=== PATIENT | male | born 1965 | race Two or more races ===

== ENCOUNTER 2023-01-24 13:39 | Outpatient (CLI) | payer OTHER | END 2023-01-24 23:59 | disposition home or self-care (01) | LOC: LAB 13:39 | PROVIDERS: ATTEND Specialist | DX: Z01.812 Encounter for preprocedural laboratory examination (principal); Z20.822 Contact with and (suspected) exposure to COVID-19 | CPT/HCPCS: U0003; C9803 ==

== ENCOUNTER 2023-02-21 14:02 | Outpatient (CLI) | payer OTHER | END 2023-02-21 23:59 | disposition home or self-care (01) | LOC: LAB 14:02 | PROVIDERS: ATTEND Specialist | DX: Z01.812 Encounter for preprocedural laboratory examination (principal); Z20.822 Contact with and (suspected) exposure to COVID-19 | CPT/HCPCS: U0003; C9803 ==

== ENCOUNTER 2023-03-14 07:25 | Inpatient (IN) | payer OTHER ==
[~2023-03-14] VITALS: Ht 182.9 cm; Wt 113.4 kg
[2023-03-14] MEDS ORDERED: FENTANYL PF 100MCG/2ML AMPUL ONE ×2 (07:38→07:39)
[2023-03-14] MEDS ORDERED: MIDAZOLAM HCL 2 MG/2ML VIAL ONE (07:38)
[2023-03-14] MEDS ORDERED: BUPIVACAINE 0.5 % PF 150 MG/30 ML VIAL ONE ×2 (07:38→07:48)
[2023-03-14] MEDS ORDERED: POLYMYXIN B SULFATE 500,000 UNITS ONE (07:47)
[2023-03-14] MEDS ORDERED: methylPREDNISolone ACETATE 80 MG/ML VIAL ONE (07:48)
[2023-03-14] MEDS ORDERED: TRANEXAMIC ACID 3,000 MG in SODIUM CHLORIDE IRRIG SOLUTION 70 ML IR ONE (08:00)
--- NOTE | 2023-03-14 08:45 | NUR ---
RN ADMITTING NOTES PATIENT ARRIVED TO UNIT @0745, AMBULATORY, A/Ox4, ON ROOM AIR. SHOWED TO ROOM AND ASKED TO CHANGE INTO [facility]OSPITAL [facility]. ORIENTED TO STAFF AND UNIT. CHART REVIEWED, CONSENTS AND CHECKLIST TAKEN. V/S TAKEN AND STABLE. CONSENTS SIGNED BY PATIENT. CHECKLIST COMPLETED. SURGERY TOOK PATIENT @0800 VIA BED. ALL BELONGINGS PUT INTO DRESSER ON UNIT.
[2023-03-14] MEDS ORDERED: HYDROMORPHONE 1 MG/1 ML DISP.SYRIN ONE (10:29)
[2023-03-14] MEDS ORDERED: ACETAMINOPHEN 325 MG TABLET PO PRN ×3 (10:30→13:00)
[2023-03-14] MEDS ORDERED: ONDANSETRON HCL/PF 4 MG/2 ML VIAL IV PRN (10:30)
[2023-03-14] MEDS ORDERED: SENNOSIDES 8.6 MG TABLET PO PRN (10:30)
[2023-03-14] MEDS ORDERED: HYDROCODONE/APAP 5/325MG TABLET PO PRN (10:30)
[2023-03-14] MEDS ORDERED: BISACODYL SUPP (10 MG) 10 MG/SUPP.RECT SUPP.RECT RC PRN (10:30)
[2023-03-14] MEDS ORDERED: DOCUSATE SODIUM 250 MG CAPSULE PO PRN (10:30)
[2023-03-14] MEDS ORDERED: ZOLPIDEM TARTRATE 5 MG TABLET PO PRN (10:30)
[2023-03-14] MEDS ORDERED: HYDROMORPHONE 1 MG/1 ML DISP.SYRIN IV PRN (10:30)
[2023-03-14 11:15] VITALS: BP 146/94
--- NOTE | 2023-03-14 11:20 | NUR ---
RN NOTES PATIENT RETURNED TO UNIT ACCOMPANIED BY TWO OR STAFF. PATIENT RESTING IN BED ON ROOM AIR, NO S/S OF RESPIRATORY DISTRESS. IV ACCESS R HAND #18G RUNNING NS. V/S TAKEN AND STABLE.
[2023-03-14 11:30] VITALS: BP 144/92
[2023-03-14] MEDS: IV LR 1000 ML 1,000 ML IV PRN ×2 (11:44→23:56)
[2023-03-14 12:00] VITALS: BP 141/84
[2023-03-14] MEDS ORDERED: hydrALAZINE HCL IV 20 MG VIAL IV PRN (13:00)
--- NOTE | 2023-03-14 14:35 | NUR ---
RN NOTES PATIENT WOKE AND COMPLAINED OF PAIN 10/10 OF RN KNEE. PRN DILAUDID ADMINISTERED.
[2023-03-14 16:00] VITALS: BP 137/86
[2023-03-14] MEDS: ASPIRIN EC 81 MG TABLET.DR PO SCH (16:14)
[2023-03-14] MEDS: ANCEF 1 GM/50 ML D5W IV SCH ×2 (16:14)
--- NOTE | 2023-03-14 17:50 | NUR ---
RN NOTES PATIENT COMPLAINED OF PAIN 7/10, PRN NARCO ADMINISTERED.
--- NOTE | 2023-03-14 18:41 | NUR ---
MS RN CLOSING NOTES PATIENT SLEEPING IN BED, A/Ox4, ABLE TO VERBALIZE NEEDS. STABLE ON ROOM AIR. NO S/S OF RESPIRATORY DISTRESS. IV ACCESS R HAND #18G RUNNING LR @100 ML/HR, INTACT AND PATENT. SKIN ISSUES: R KNEE SX SITE. SAFETY MEASURES MAINTAINED: BED LOCKED AND IN LOWEST POSITION, HOB ELEVATED, CALL LIGHT WITHIN REACH, SIDE RAILS UPx2. ENDORSE TO NEXT SHIFT ANY DARIN.
--- NOTE | 2023-03-14 19:15 | NUR ---
MS RN OPENING NOTES - RECEIVED PATIENT SLEEPING, EASY TO AROUSE. A/O X4. BREATHING EVEN AND NON-LABORED ON ROOM AIR. NOT IN APPARENT DISTRESS. C/O THROBBING RIGHT KNEE PAIN 05/28. HAS RIGHT HAND IV ACCESS #18G WITH LR RUNNING AT 100 ML/HR. NO S/S OF INFILTRATION NOTED. RIGHT LOWER EXTREMITY MOOKIE BANDAGE DRY AND INTACT. SAFETY PRECAUTIONS IN PLACE: BED LOCKED AND IN LOW POSITION, SIDE RAILS UP X2, CALL LIGHT WITHIN REACH. WILL CONTINUE TO PLAN OF CARE.
[2023-03-14] MEDS ORDERED: diphenhydrAMINE HCL 25 MG CAPSULE PO PRN (19:30)
[2023-03-14] MEDS ORDERED: MAG HYDROX/AL HYDROX/SIMETH 30 ML UDC PO PRN (19:30)
[2023-03-14] MEDS ORDERED: MAGNESIUM HYDROXIDE 30 ML UDC PO PRN (19:30)
[2023-03-14] MEDS ORDERED: CLONIDINE HCL 0.1 MG TABLET PO PRN (19:30)
[2023-03-14] MEDS ORDERED: HYDROCODONE/APAP 10/325MG TABLET PO PRN (19:30)
[2023-03-14 20:00] VITALS: BP 142/88
[2023-03-14] MEDS: DOCUSATE SODIUM 100 MG CAPSULE PO SCH (20:21)
[2023-03-14] MEDS: FAMOTIDINE (20 MG) 20 MG TABLET PO SCH (20:21)
[2023-03-14] MEDS: HYDROMORPHONE 1 MG/1 ML DISP.SYRIN IV PRN (20:21)
--- NOTE | 2023-03-14 20:30 | NUR ---
C/O THROBBING RIGHT KNEE PAIN 07/29. ADMINISTERED PRN DILAUDID 0.5MG, WILL CONTINUE TO MONITOR.
[2023-03-15] MEDS: ANCEF 1 GM/50 ML D5W IV SCH ×2 (00:04)
[2023-03-15] MEDS: HYDROMORPHONE 1 MG/1 ML DISP.SYRIN IV PRN ×3 (06:02→13:29)
--- NOTE | 2023-03-15 06:02 | NUR ---
C/O BREAKTHROUGH RIGHT KNEE PAIN 08/28. ADMINISTERED PRN DILAUDID 0.5MG PER MD ORDER.
[2023-03-15 06:10] LABS: BASOPHILS % (AUTO) 0.3 % (0.0-2.0); EOSINOPHILS % (AUTO) 0.3 % (0.0-6.0); HEMATOCRIT 40 % (39-51); HEMOGLOBIN 13.6 g/dL (13.5-17.5); LYMPHOCYTES # (AUTO) 1.8 K/uL (0.8-4.8); LYMPHOCYTES % (AUTO) 13.7 % (20.0-44.0); MEAN CORPUSCULAR HGB CONC 34 g/dl (31.0-36.0); MEAN CORPUSCULAR VOLUME 86 fL (80-96); MONOCYTES # (AUTO) 1.1 K/uL (0.1-1.30); MONOCYTES % (AUTO) 8.6 % (2.0-12.0); NEUTROPHILS # (AUTO) 9.9 K/uL (1.8-8.9); NEUTROPHILS % (AUTO) 77.1 % (43.0-81.0); PLATELET COUNT (AUTO) 211 K/uL (150-450); RED BLOOD CELL COUNT(AUTO) 4.71 MIL/uL (4.5-6.0); WHITE BLOOD COUNT (AUTO) 12.8 K/uL (4.3-11.0)
[2023-03-15 06:57] LABS: ALBUMIN 3.3 g/dL (3.4-5.0); BILIRUBIN,TOTAL 0.8 mg/dL (0.2-1.0); CALCIUM, SERUM 8.7 mg/dL (8.5-10.1); CREATININE 0.9 mg/dL (0.6-1.3); MAGNESIUM 1.9 mg/dL (1.8-2.4); PHOSPHORUS 3.7 mg/dL (2.5-4.9); POTASSIUM 3.9 mmol/L (3.5-5.1); TOTAL PROTEIN, SERUM 6.8 g/dL (6.4-8.2)
--- NOTE | 2023-03-15 07:05 | NUR ---
MS RN OPENING NOTES - RECEIVED PATIENT SLEEPING, EASY TO AROUSE. A/O X4. BREATHING EVEN AND NON-LABORED ON ROOM AIR. NOT IN APPARENT DISTRESS. PATIENT HAS RIGHT HAND IV ACCESS #18G WITH LR RUNNING AT 100 ML/HR. NO S/S OF INFILTRATION NOTED. RIGHT LOWER EXTREMITY MOOKIE BANDAGE DRY AND INTACT. SAFETY PRECAUTIONS IN PLACE: BED LOCKED AND IN LOW POSITION, SIDE RAILS UP X2, CALL LIGHT WITHIN REACH. WILL CONTINUE TO MONITOR THE PATIENT.
--- NOTE | 2023-03-15 07:09 | NUR ---
MS RN CLOSING NOTES - PATIENT AWAKE, ABLE TO VERBALIZE NEEDS. NO CARDIAC OR RESPIRATORY DISTRESS THROUGHOUT THE NIGHT. AFEBRILE. IMPROVEMENT IN RIGHT KNEE PAIN NOTED. RIGHT HAND IV ACCESS INTACT, PATENT AND FLUSHING. RIGHT LOWER EXTREMITY OFFLOADED AND EXTENDED. ALL DUE MEDS GIVEN AND NEEDS ATTENDED. PAIN MANAGEMENT ORDERED. SAFETY PRECAUTIONS MAINTAINED. WILL ENDORSE TO NEXT SHIFT FOR DARIN.
[2023-03-15 08:38] VITALS: BP 134/84
[2023-03-15] MEDS: FAMOTIDINE (20 MG) 20 MG TABLET PO SCH ×2 (09:57→22:04)
[2023-03-15] MEDS: DOCUSATE SODIUM 100 MG CAPSULE PO SCH ×2 (09:57→16:22)
[2023-03-15] MEDS: ASPIRIN EC 81 MG TABLET.DR PO SCH ×2 (09:57→16:22)
[2023-03-15] MEDS ORDERED: VALS80TA31 PO (11:11)
[2023-03-15] MEDS ORDERED: DICL25TA10 PO (11:22)
[2023-03-15] MEDS ORDERED: PANT40TA2 PO (11:22)
[2023-03-15] MEDS ORDERED: OXYC-133 PO (11:22)
[2023-03-15 16:05] VITALS: BP 175/93
[2023-03-15] MEDS: oxyCODONE IR immediate release 5 MG PO PRN (16:22)
--- NOTE | 2023-03-15 17:30 | NUR ---
Dr Glynn DC'd Dilaudid 0.5mg IV Q2, PRN and ordered Dilaudid 1mg SUB-Q, Q3, PRN plus Oxycodone PO, Q3, PRN with 90 minutes gap in between, specifically mentioned. Charge nurse aware.
[2023-03-15] MEDS: HYDROMORPHONE 1 MG/1 ML DISP.SYRIN SQ PRN ×2 (18:58→22:04)
[2023-03-15 20:00] VITALS: BP 164/78
--- NOTE | 2023-03-15 20:06 | NUR ---
MS RN CLOSING NOTES - PATIENT AWAKE, ABLE TO VERBALIZE NEEDS. NO CARDIAC OR RESPIRATORY DISTRESS THROUGHOUT THE NIGHT. AFEBRILE. IMPROVEMENT IN RIGHT KNEE PAIN NOTED. RIGHT HAND IV ACCESS INTACT, PATENT AND FLUSHING. RIGHT LOWER EXTREMITY OFFLOADED AND EXTENDED. ALL DUE MEDS GIVEN AND NEEDS ATTENDED. PAIN MANAGEMENT ORDERED. SAFETY PRECAUTIONS MAINTAINED. WILL ENDORSE TO PM SHIFT NURSE FOR DARIN.
--- NOTE | 2023-03-15 20:06 | NUR ---
MS RN OPENING NOTES: RECEIVED PATIENT AWAKE IN BED, BED IN LOW POSITION, CALL LIGHTS WITHIN REACH, NO COMPLAIN OF PAIN AND DISCOMFORT AT THIS TIME, ON ROOM AIR SATURATING WELL, PATIENT IS A/OX4 ABLE TO MAKE NEEDS KNOWN, ON BED REST, PATIENT IS S/P RIGHT TOTAL KNEE ARTHROPLASTY, ON PAIN MANAGEMENT, PATIENT KEPT CLEAN AND DRY ALL NEEDS MET WILL CONTINUE TO MONITOR.
[2023-03-15] MEDS: IV LR 1000 ML 1,000 ML IV PRN (20:53)
[2023-03-15 22:00] VITALS: BP 172/79
--- NOTE | 2023-03-15 22:00 | NUR ---
RN NOTES; PATIENT WAS NOTED WITH INCREASE BP AT 172/79 HR-77, GIVE CLONIDINE 0.1 MG PRN Q8H FOR SBP>160, WILL CONTINUE TO MONITOR.
[2023-03-16] MEDS: HYDROMORPHONE 1 MG/1 ML DISP.SYRIN SQ PRN ×2 (05:08→12:12)
[2023-03-16] MEDS: oxyCODONE IR immediate release 5 MG PO PRN ×3 (06:38→20:13)
[2023-03-16 07:00] VITALS: BP 170/82
--- NOTE | 2023-03-16 07:36 | NUR ---
MS RN CLOSING NOTES: PATIENT SLEEP IN BED COMFORTABLY, AROUSABLE TO VERBAL STIMULI, BED IN LOW POSITION CALL LIGHTS WITHIN REACH, NO COMPLAIN OF PAIN AND DISCOMFORT AT THIS TIME, ON ROOM AIR SATURATING WELL, PATIENT ON PAIN MANAGEMENT, WITH RIGHT KNEE BANDAGE NO BLEEDING WAS OBSERVED.WITH ONGOING IV AT LEFT HAND #18 WITH PLR@100ML/HR INFUSING WELL, PATIENT KEPT CLEAN AND DRY ALL NEEDS MET ENDORSE TO INCOMING SHIFT.
--- NOTE | 2023-03-16 07:37 | NUR ---
MS RN OPENING NOTES: RECEIVED PATIENT ASLEEP BUT WAKES UP ON VERBAL STIMULI, NO COMPLAIN OF PAIN OR DISCOMFORT AT THIS TIME, A/OX4 ABLE TO MAKE NEEDS KNOWN, BED IN LOW POSITION, CALL LIGHTS WITHIN REACH, ON ROOM AIR SATURATING WELL, PATIENT IS S/P RIGHT TOTAL KNEE ARTHROPLASTY, ON PAIN MANAGEMENT, ALL NEEDS MET, WILL CONTINUE TO MONITOR THE PATIENT.
[2023-03-16] MEDS ORDERED: SENNOSIDES 8.6 MG TABLET PO SCH (09:00)
[2023-03-16] MEDS: ASPIRIN EC 81 MG TABLET.DR PO SCH ×2 (09:02→17:42)
[2023-03-16] MEDS: FAMOTIDINE (20 MG) 20 MG TABLET PO SCH (09:03)
[2023-03-16] MEDS: DOCUSATE SODIUM 100 MG CAPSULE PO SCH ×2 (09:03→17:42)
[2023-03-16] MEDS ORDERED: OXYC5CAP18 PO (13:45)
[2023-03-16] MEDS ORDERED: Aspirin Ec PO (13:45)
[2023-03-16] MEDS ORDERED: VALSARTAN 80 MG TABLET PO SCH (14:00)
[2023-03-16] MEDS ORDERED: PANTOPRAZOLE 40 MG TABLET.DR PO SCH (14:00)
[2023-03-16 14:41] VITALS: BP 137/102
--- NOTE | 2023-03-16 21:03 | NUR ---
Discharged patient to [facility] in stable condition, A/O x 4, able to make needs known. All medications given as ordered during the shift. All belongings accounted for including medications owned by the patient. Endorsement to [facility] pending awaiting response from the rehab. Multiple calls made but unable to get an answer. Charge nurses on both AM & PM shift aware. Per PM charge nurse, we'll wait for [facility] call instead. Patient was given discharge instructions both oral and in written form. IV access removed, C/D/I and endorsement made with EMT's both done by PM nurse. Patient left in stable condition. Charge nurse aware.
== END 2023-03-16 20:45 | DRG 470 ==
LOC: DS 07:25 → MED 07:26
PROVIDERS: ADMIT Internal Medicine; ATTEND Internal Medicine
PROC: 0SRC0J9 Replacement of Right Knee Joint with Synthetic Substitute, Cemented, Open Approach (ICD-10-PCS; principal; 2023-03-14)
DX: M17.11 Unilateral primary osteoarthritis, right knee (principal); Z20.822 Contact with and (suspected) exposure to COVID-19; I10 Essential (primary) hypertension; Y99.0 Civilian activity done for income or pay; X58.XXXA Exposure to other specified factors, initial encounter; E66.9 Obesity, unspecified; Z68.34 Body mass index [BMI] 34.0-34.9, adult; Z82.0 Family history of epilepsy and other diseases of the nervous system; Z59.00 Homelessness unspecified; Z87.891 Personal history of nicotine dependence
CPT/HCPCS: 36415; 80053-TC; 83735-TC; 84100-TC; 85025-TC; 87081-TC; 88305-TC; 88311-TC; 97530-TC; 97760-TC; A4217; A4223; A6209; C1713; C1776; G0378; J0690; J1040; J1100; J1170; J2250; J2405; J2704; J3010; J3490; J7030; J7060; J7120; L1830